=== PATIENT | female | born 1970 | race African-American/Black ===

== ENCOUNTER 2020-03-05 20:50 | Emergency (ER) | payer OTHER ==
[~2020-03-05] VITALS: Ht 175.3 cm; Wt 113.4 kg
--- NOTE | 2020-03-05 22:39 | Emergency Department Note ---
History of Present Illnes History of Present Illness Chief Complaint: Extremity Trauma/Pain History of Present Illness This is a 49 year old female with L foot pain when a stack of wood fell onto the area at 1830. Historian: Patient Arrival Mode: Car Onset (how long ago): second(s) (SLUBBER RUNNER) Severity: moderate Onset quality: sudden Duration (how long): hour(s) (SLUBBER RUNNER) Progression: unchanged Chronicity: new Context: trauma/injury Relieving factors: none, immobilization Exacerbating factors: movement Associated symptoms: denies other symptoms Treatments prior to arrival: none Past Medical/Family History Physician Review I have reviewed the patient's past medical and family history. Any updates have been documented here. Past Medical History Recent Fever: No Clinical Suspicion of Infectio: No Past Medical History: None Past Surgical History: Hysterectomy, Orthopedic Implants Social History Smoking Cessation: Never Smoker Alcohol Use: None Any Illegal Drug Use: No Review of Systems Review of Systems Constitutional: no symptoms EENTM: no symptoms Cardiovascular: no symptoms Respiratory: no symptoms Gastrointestinal: no symptoms Genitourinary: no symptoms Musculoskeletal: joint pain Neurological: no symptoms Psychological: no symptoms Endocrine: no symptoms Hematological/Lymphatic: no symptoms Review of other systems All other systems reviewed and negative. Physical Exam Related Data Allergies: Coded Allergies: No Known Allergies (Unverified , 03/05/20) Triage Vital Signs Vital Signs Date Time Temp Pulse Resp B/P (MAP) Pulse Ox O2 Delivery O2 Flow Rate FiO2 03/05/20 21:54 98.5 90 17 260/134 96 Vital signs reviewed: Yes Physical Exam CONSTITUTIONAL Constitutional: well-developed, well-nourished HENT HENT: normocephalic, atraumatic, oropharynx clear/moist, nose normal HENT L/R: left ext ear normal, right ext ear normal EYES Eyes: PERRL, conjunctivae normal NECK Neck: ROM normal PULMONARY Pulmonary: effort normal, breath sounds normal CARDIOVASCULAR Cardiovascular: regular rhythm, heart sounds normal, capillary refill normal, normal rate GASTROINTESTINAL Abdominal: soft, nontender, bowel sounds normal GENITOURINARY Genitourinary: exam deferred SKIN Skin: other (contusion dorsal regoin L foot. N/V intact) MUSCULOSKELETAL Musculoskeletal: ROM normal NEUROLOGICAL Neurological: alert, oriented x 3, no gross motor or sensory deficits PSYCHOLOGICAL Psychological: mood/affect normal, judgement normal Results Imaging Imaging results reviewed: Yes Impressions [place] [address] Patient Name: KAVIN KAUFFMAN MR #: [id number] : 1970 Age/Sex: 49/F Req #: [id number] Adm Physician: Ordered by: CODY PENA DO Report #: [id number] Location: ER Room/Bed: Procedure: [id number] DX/FOOT LEFT COMPLETE Exam Date: 03/05/20 Exam Time: 2300 REPORT STATUS: Signed Exam: Left foot radiographs-3 views Clinical History: Left foot pain. Comparison: None. Findings: There is an acute, minimally displaced, intra-articular fracture at the lateral aspect of the base of the great toe distal phalanx. Mild soft tissue edema. No evidence of dislocation. Deformities of the bases of the second through fifth metatarsals and well-corticated bony fragments along the inferior aspect of the calcaneus, likely sequela of remote trauma. The Lisfranc alignment appears maintained. Plantar calcaneal spur. Achilles enthesopathy. Moderate degenerative changes in the midfoot. Mild degenerative changes of the first MTP joint and scattered interphalangeal joints. Impression: An acute, minimally displaced, intra-articular fracture at the lateral aspect of the base of the great toe distal phalanx. Sequela of remote trauma as above. Signed by: Dr. Turner Spaulding MD on 03/06/2020 12:07 AM Dictated By: TURNER SAPULDING MD Transcribed By: FRANCISCO on 03/06/206 COPY TO: CODY PENA DO~ Assessment & Plan Assessment & Plan Final Impression: (1) Elevated blood pressure reading (2) Distal phalanx or phalanges, closed fracture Assessment & Plan Xray findings reviewed with patient. Rx ultram with f/u to podiatry Dr Stuart. Patient given post-operative surgical shoe. Plan to discharge to home Depart Disposition: HOME, SELF-CARE Medications in the ED Acetaminophen/ Hydrocodone Bitart 1 ea ONCE ONCE PO Last administered on 03/05/20at 22:46; Admin Dose 1 EA; Start 03/05/20 at 22:45; Stop 03/05/20 at 22:5 7; Status DC Clonidine HCl 0.2 mg ONCE STAT PO Last administered on 03/05/20at 22:46; Admin Dose 0.2 MG; Start 03/05/20 at 22:40; Stop 03/05/20 at 22:57; Status DC CODY PENA DO March 05, 2020 22:39
[2020-03-05] MEDS ORDERED: CLONIDINE HCL 0.2 MG TAB PO STA (22:40)
[2020-03-05 22:44] VITALS: BP 179/98
[2020-03-05] MEDS ORDERED: HYDROCODONE/APAP 10MG-325MG TAB PO ONE (22:45)
--- NOTE | 2020-03-06 00:11 | Diagnostic Imaging Report ---
Exam: Left foot radiographs-3 views Clinical History: Left foot pain. Comparison: None. Findings: There is an acute, minimally displaced, intra-articular fracture at the lateral aspect of the base of the great toe distal phalanx. Mild soft tissue edema. No evidence of dislocation. Deformities of the bases of the second through fifth metatarsals and well-corticated bony fragments along the inferior aspect of the calcaneus, likely sequela of remote trauma. The Lisfranc alignment appears maintained. Plantar calcaneal spur. Achilles enthesopathy. Moderate degenerative changes in the midfoot. Mild degenerative changes of the first MTP joint and scattered interphalangeal joints. Impression: An acute, minimally displaced, intra-articular fracture at the lateral aspect of the base of the great toe distal phalanx. Sequela of remote trauma as above. Signed by: Dr. Mariano Rankin MD on 03/06/2020 12:07 AM
--- OUTSIDE RECORDS SUMMARY | 2020-03-06 10:22 | XMS REPORT | Clinical Summary ---
Author Author [facility] Organization [facility] Address Unknown Phone Unavailable Care Team Providers Care Heel Stiffener Name Role Phone Lis Longoria MD PCP Allergies No Known Allergies Medications End Date Status Medication Sig Dispensed Refills Start Date Active acetaminophen (TYLENOL) Take 1,000 mg 0 500 MG tablet by mouth every 6 (six) hours as needed for mild pain. Active Problems Problem Noted Date Excessive and frequent menstruation with regular cycl e 11/17/2017 Vaginal bleeding 11/11/2017 Immunizations Name Administration Dates Next Due FLUCELVAX QUAD PF 11/12/2017 Family History Medical History Relation Name Comments No Known Problems Brother Graves' disease Father Hypertension Father Anuerysm Mother Hypertension Mother Stomach cancer Paternal Grandfather No Known Problems Sister No Known Problems Sister Relation Name Status Comments Brother Alive Father Alive Maternal Grandfather Maternal Grandmother Mother Alive Paternal Grandfather Dx age 50'syrs Paternal Grandmother Sister Alive Sister Alive Social History Date Tobacco Use Types Packs/Day Years Used Never Smoker Smokeless Tobacco: Never Used Drinks/Week oz/Week Comments Alcohol Use socially Yes Sex Assigned at Date Recorded Not on file Industry Job Start Date Occupation Not on file Not on file Not on file Travel End Travel History Travel Start No recent travel history available. Last Filed Vital Signs Not on file Plan of Treatment Health Maintenance Due Date Last Done Comments CERVICAL CANCER SCREENING 1992 INFLUENZA VACCINE 05/17/2020 11/12/2017 Results Not on fileafter 03/05/2019 Insurance Type Payer Benefit Subscriber ID Effective Phone Address Plan / Dates Group POS AETNA AETNA xxxxxxxxxx 2017- [employer] [place] POS A[employer]NA AETNA xxxxxxxxxx 2016-P [employer] POS Advance Directives For more information, please contact: [phone] Patient Private Duty Aide Explanation Type Date Recorded Advance Directives, 05/17/2016 10:31 AM Living Will and Medical Power of [employer] Advance Directives, 11/16/2017 8:15 AM Living Will and Medical Power of [employer]
== END 2020-03-06 00:32 | disposition home or self-care (01) ==
LOC: ER 20:50
DX: M79.672 Pain in left foot (principal); S92.422A Displaced fracture of distal phalanx of left great toe, initial encounter for closed fracture; W20.8XXA Other cause of strike by thrown, projected or falling object, initial encounter; Y92.008 Other place in unspecified non-institutional (private) residence as the place of occurrence of the external cause; R03.0 Elevated blood-pressure reading, without diagnosis of hypertension
CPT/HCPCS: 99283